=== PATIENT | female | born 1985 | race Caucasian/White ===

== ENCOUNTER 2017-09-06 10:52 | Emergency (ER) | payer OTHER ==
[~2017-09-06] VITALS: Ht 162.6 cm; Wt 72.6 kg
[~2017-09-06 10:52] MED LIST: IRON PO; PRENATAL PO
[2017-09-06] MEDS ORDERED: TESSALON PERLE100 MG PO (11:43)
[2017-09-06] MEDS ORDERED: MUCINEX D TABL1 EAC1 PO (11:43)
[2017-09-06] MEDS ORDERED: ACCUNEB SO1.25 MG/1 INH (11:43)
[2017-09-06 12:34] VITALS: BP 124/77
[2018-03-25] MEDS ORDERED: DOXYCYCLINE 10100 MG PO (17:27)
[2018-03-25] MEDS ORDERED: IBUPROFEN 600600 M1 PO (17:27)
[2018-03-25] MEDS ORDERED: ELOCON15 GM TOP (17:27)
[2018-03-25] MEDS ORDERED: CLOTRIMAZOLE 1%15 G1 TOP (17:49)
== END 2017-09-06 12:36 | disposition home or self-care (01) ==
LOC: ER 10:52
DX: J06.9 Acute upper respiratory infection, unspecified (principal); J98.01 Acute bronchospasm; Z86.2 Personal history of diseases of the blood and blood-forming organs and certain disorders involving the immune mechanism; Z88.2 Allergy status to sulfonamides

== ENCOUNTER 2017-11-28 13:08 | Emergency (ER) | payer OTHER ==
[~2017-11-28] VITALS: Ht 162.6 cm; Wt 72.6 kg
[~2017-11-28 13:08] MED LIST changes: +ACCUNEB SO1.25 MG/1 INH; +MUCINEX D TABL1 EAC1 PO; +TESSALON PERLE100 MG PO
[2017-11-28] MEDS ORDERED: ZYRTEC10 M2 PO (14:36)
[2017-11-28] MEDS ORDERED: KEFLEX500 M1 PO (14:36)
[2017-11-28] MEDS ORDERED: PREDNISONE 20 M20 MG PO (14:36)
[2017-11-28 14:41] VITALS: BP 124/62
== END 2017-11-28 14:43 | disposition home or self-care (01) ==
LOC: ER 13:08
DX: L30.9 Dermatitis, unspecified (principal); L73.9 Follicular disorder, unspecified; Z86.2 Personal history of diseases of the blood and blood-forming organs and certain disorders involving the immune mechanism; Z88.2 Allergy status to sulfonamides

== ENCOUNTER 2017-12-20 19:53 | Inpatient (IN) | payer OTHER ==
[~2017-12-20] VITALS: Ht 162.6 cm; Wt 68.0 kg
[~2017-12-20 19:53] MED LIST changes: +KEFLEX500 M1 PO; +PREDNISONE 20 M20 MG PO; +ZYRTEC10 M2 PO
[2017-12-20 19:59] VITALS: BP 112/73
[2017-12-20 20:30] LABS: ABSOLUTE NEUTROPHILS 5.2 thou/uL (1.4-8.2); BASOPHILS 0.3 % (0.0-2.0); EOSINOPHILS 5.1 % (0.0-3.0); HEMATOCRIT 43.7 % (37.0-47.0); HEMOGLOBIN 15.2 gm/dL (12.0-15.0); LYMPHOCYTES 22.2 % (24.0-44.0); MCH 31.8 pg (26.0-34.0); MCHC 34.7 g/dL (28.0-37.0); MCV 91.7 fL (80.0-100.0); MONOCYTES 7.9 % (1.0-8.0); PLATELET COUNT 184 thou/uL (150-400); POLYS 64.5 % (36.0-66.0); RBC 4.76 mil/uL (4.20-5.00); RDW 13.9 % (10.5-14.5); WBC 8.1 thou/uL (4.0-11.0)
[2017-12-20 20:36] LABS: CALCIUM 9.4 mg/dL (8.5-10.1); CREATININE 0.9 mg/dL (0.6-1.0); POTASSIUM 3.4 mmol/L (3.5-5.1)
[2017-12-20 20:42] LABS: ALBUMIN 4.4 g/dL (3.4-5.0); TOTAL BILIRUBIN 0.4 mg/dL (<0.1-1.0); TOTAL PROTEIN 7.8 g/dL (6.4-8.2)
[2017-12-20 21:17] VITALS: BP 112/73
[2017-12-20 21:34] VITALS: BP 115/50
[2017-12-20 22:17] LABS: URINE BILIRUBIN NEGATIVE (Negative); URINE BLOOD TRACE (Negative); URINE CLARITY CLEAR; URINE COLOR YELLOW; URINE GLUCOSE-RANDOM* NEGATIVE (Negative); URINE KETONES 1+ (Negative); URINE LEUKOCYTES-REFLEX NEGATIVE (Negative); URINE NITRITE-REFLEX NEGATIVE (Negative); URINE PROTEIN (DIPSTICK) NEGATIVE (Negative); URINE UROBILINOGEN 0.2 E.U./dl (0.2-1.0)
[2017-12-20 22:48] VITALS: BP 114/72
[2017-12-21 05:24] VITALS: BP 100/61
[2017-12-21 05:42] LABS: CALCIUM 9.3 mg/dL (8.5-10.1); CREATININE 0.8 mg/dL (0.6-1.0); POTASSIUM 3.8 mmol/L (3.5-5.1)
[2017-12-21 07:41] VITALS: BP 113/59
[2017-12-21 16:54] VITALS: BP 114/67
[2017-12-21 20:16] VITALS: BP 108/64
[2017-12-22 04:20] VITALS: BP 100/60
[2017-12-22 08:51] VITALS: BP 101/63
[2017-12-22] MEDS ORDERED: PREDNISONE 20 M20 MG PO (13:12)
[2017-12-22] MEDS ORDERED: VIBRAMYCIN 100100 MG PO (13:12)
[2017-12-22] MEDS ORDERED: TEMOVATE30 GM TOP (13:13)
[2017-12-22] MEDS ORDERED: TRIAMCINOLONE A80 G2 TOP (13:14)
[2017-12-22] MEDS ORDERED: CETAPHIL CREAM454 GM TOP (13:15)
[2017-12-22 13:39] VITALS: BP 101/63
== END 2017-12-22 14:08 | disposition home or self-care (01) | DRG 156 ==
LOC: ER 19:53 → 4N 21:20 → EROBS 21:20 → 4N 22:46
PROVIDERS: Nurse Practitioner Family; Physician Assistant
DX: H60.11 Cellulitis of right external ear (principal); F17.210 Nicotine dependence, cigarettes, uncomplicated; J45.909 Unspecified asthma, uncomplicated; R19.7 Diarrhea, unspecified; Z88.2 Allergy status to sulfonamides
CPT/HCPCS: 10091